=== PATIENT | male | born 1975 | race Caucasian/White ===

== ENCOUNTER 2020-12-04 20:02 | Emergency (ER) | payer OTHER, SELFPAY ==
[2020-12-04 20:30] LABS: POC Glucose,Bedside 236 (70-110)
[2020-12-04 20:32] VITALS: BP 165/85; PULSE 104; RESP 18; TEMP 37.2; O2SAT 96; BMI 41.9
--- NOTE | 2020-12-04 20:50 | HMH.EDUROGM ---
ED Disposition Clinical Impression: Yeast dermatitis of penis Diabetes mellitus Qualifiers: Diabetes mellitus type: type 2 Diabetes mellitus retirement insulin use: unspecified retirement insulin use status Diabetes mellitus complication status: without complication Qualified Code(s): E11.9 - Type 2 diabetes mellitus without complications Disposition: Home, Self-Care Condition on Discharge: Good Instructions: DI for Diabetes Type 2 Additional Instructions: use meds and diet and see pcp for follow up Prescriptions: Fluconazole [Diflucan 100mg tablet] 100 mg PO DAILY #7 tab Transmission Status: [facility] to [facility] Metformin HCl 500 mg PO BID #60 tab Transmission Status: Pending to [facility] Referrals: Eber Marcelino MD [Primary Care Provider] - - Critical Care Critical Care Time: No Attestation: On 12/04/20, the high probability of a clinically significant, sudden or life threatening deterioration of the following system(s) required my full and direct attention, intervention and personal management. The time I documented below is in addition to time spent performing reported procedures but includes the following listed in this critical care notation. Medical Decision Making - Medical Records Medical records reviewed: Yes: I reviewed the patient's medical records. - Ted Inquiry Pt receiving controlled substance: No Vital Signs: 12/04/20 20:32 Temperature 99.0 F Temperature Source Oral Pulse Rate [Right] 104 H Respiratory Rate 18 Blood Pressure [Right Arm] 165/85 H Blood Pressure Mean [Right Arm] 111 Blood Pressure Source [Right Arm] Automatic Cuff 02 Sat by Pulse Oximetry 96 Oxygen Delivery Method Room Air - Lab Data Lab results reviewed: Yes: I reviewed the patient's lab results. Lab Results 12/04/20 20:22: POC Glucose 236 H 12/04/20 20:30: WBC 10.0, RBC 5.26, Hgb 15.3, Hct 44.9, MCV 85.3, MCH 29.1, MCHC 34.1, RDW 14.6, Plt Count 249, MPV 8.7, Neut % (Auto) 68.5, Lymph % (Auto) 24.2, [place] % (Auto) 4.6, Eos % (Auto) 1.7, Baso % (Auto) 1.0, Neut # (Auto) 6.8, Lymph # (Auto) 2.4, [place] # (Auto) 0.5, Eos # (Auto) 0.2, Baso # (Auto) 0.1, ESR 9 12/04/20 20:30: Sodium 138, Potassium 4.1, Chloride 103, Carbon Dioxide 27, Anion Gap 12.1, BUN 19, Creatinine 0.80, Estimated Creat Clear 106, Estimated GFR 105, Est GFR ( Amer) 127, Glucose 232 H, Calcium 9.0, Total Bilirubin 0.5, AST 32, ALT 34, Alkaline Phosphatase 101, C-Reactive Protein 8.2 H, Total Protein 7.4, Albumin 4.1, Globulin 3.3 H, Albumin/Globulin Ratio 1.2, Thyroxine (T4) 9.3 12/04/20 20:30: Hemoglobin A1c 9.8 H 12/04/20 20:48: Urine Color Yellow, Urine Appearance Clear, Urine pH 5.5, Ur Specific [place] >= 1.030, Urine Protein Negative, Urine Glucose (UA) 3+, Urine Ketones Negative, Urine Blood Negative, Urine Nitrate Negative, Urine Bilirubin Negative, Urine Urobilinogen 0.2, Ur Leukocyte Esterase Negative, Urine WBC Occasional, Ur Squamous Epith Cells Occasional, Urine Bacteria Trace Result diagrams: 12/04/20 20:30 12/04/20 20:30 Orders (Tests/Meds): ED MEDICATIONS Generic Name Dose Route Start Last Admin Trade Name Freq PRN Reason Stop Dose Admin Metformin HCl 500 mg 12/04/20 21:36 Metformin 500mg Tablet PO 12/04/20 21:37 ONCE ONE Discontinued Medications Generic Name Dose Route Start Last Admin Trade Name Freq PRN Reason Stop Dose Admin Fluconazole 100 mg 12/04/20 21:35 Fluconazole 100mg Tablet PO 12/04/20 21:36 ONCE ONE Protocol ORDERS Category Date Time Status C-Reactive Protein Stat Lab 12/04/20 20:30 Results Comprehensive Metabolic Panel Stat Lab 12/04/20 20:30 Results Procalcitonin Stat Lab 12/04/20 20:30 Results T4 (Thyroxine) Stat Lab 12/04/20 20:30 Results Thyroid Stimulating Hormone Stat Lab 12/04/20 20:30 Results - Physician Consults Physician Consulted: annamarie Reason -: Pt condition Medical Decision Narrative: will start
[2020-12-04 20:51] LABS: Basophils # 0.1 K/mm3 (0-0.2); Eosinophils # 0.2 K/mm3 (0.0-0.4); Eosinophils % 1.7 % (0.1-12.0); Hematocrit 44.9 % (42.0-52.0); Hemoglobin 15.3 g/dL (14.1-18.0); Lymphocytes # 2.4 K/mm3 (0.7-4.5); Lymphocytes % 24.2 % (10-50); Mean Corpuscular HGB Conc 34.1 g/dL (31.8-35.4); Mean Corpuscular Hemoglobin 29.1 pg (27.0-31.2); Mean Corpuscular Volume 85.3 fl (80-94); Mean Platelet Volume 8.7 fl (7.4-10.4); Monocytes # 0.5 K/mm3 (0.1-1.0); Monocytes % 4.6 % (1.7-9.3); Neutrophils # 6.8 K/mm3 (1.8-7.8); Neutrophils % 68.5 % (37.0-80.0); Platelet Count 249 K/mm3 (142-424); Red Blood Count 5.26 M/mm3 (4.60-6.20); Red Cell Distribution Width 14.6 % (11.5-17.5)
[2020-12-04 20:54] LABS: Appearance,Urine CLEAR (Clear); Bilirubin,Urine Negative (Negative); Blood, Urine Negative (Negative); Color,Urine YELLOW (Yellow); Glucose,Urine (UA) 3+ (Negative); Ketones,Urine Negative (Negative); Leukocyte Esterase,Urine Negative (Negative); Microscopic, Urine URINE MICROSCOPIC (MICROSCOPIC); Nitrate,Urine Negative (Negative); PH,Urine 5.5 (5.0-8.5); Protein,Urine Negative (Negative); Specific Gravity, Urine >= 1.030 (1.005-1.030); Urobilinogen,Urine 0.2 EU/dl (0.2)
[2020-12-04 20:59] LABS: Chloride 103 mmol/L (98-107); Potassium 4.1 mmoL/L (3.5-5.1); Sodium 138 mmol/L (136-145)
[2020-12-04 21:02] LABS: Alanine Aminotransferase 34 U/L (12-78); Albumin Level 4.1 g/dl (3.5-5.0); Albumin/Globulin Ratio 1.2 (1.1-1.8); Alkaline Phosphatase 101 U/L (38-126); Anion Gap 12.1 mEq/L (5-15); Aspartate Amino Transferase 32 U/L (17-59); Bilirubin,Total 0.5 mg/dl (0.2-1.3); Blood Urea Nitrogen 19 mg/dl (9-20); Carbon Dioxide 27 mmol/L (22.0-30.0); Creatinine Clearance Estimated 106 mL/min (50-200); Estimated Glomerular Filt Rate 105 ml/min (>60); GFR (African American) 127 ML/MIN (>60); Globulin 3.3 g/dL (1.3-3.2); Glucose 232 mg/dl (74-100); Total Protein,Serum 7.4 g/dl (6.3-8.2)
[2020-12-04 21:09] LABS: C-Reactive Protein 8.2 mg/L (0-4)
[2020-12-04 21:14] LABS: Erythrocyte Sedimentation Rate 9 mm/hr (0-15)
[2020-12-04 21:21] LABS: T4 (Thyroxine) 9.3 ug/dl (5.53-11.0)
[2020-12-04 21:22] LABS: Bacteria,Urine Trace /lpf; Squamous Epithelial Cell,Urine Occasional #/hpf (0-5); WBC,Urine Occasional #/hpf (0-3)
[2020-12-04 21:30] VITALS: BP 123/73; PULSE 85; O2SAT 97
[2020-12-04 21:32] LABS: Hemoglobin A1C 9.8 % (4.0-6.0)
[2020-12-04 21:34] LABS: Thyroid Stimulating Hormone 1.75 uIU/mL (0.465-4.68)
[2020-12-04 21:49] LABS: Procalcitonin 0.094 ng/mL (0.0-2.0)
[2020-12-04 21:59] VITALS: BP 123/73; PULSE 93; RESP 15; TEMP 36.8; O2SAT 98
== END 2020-12-04 22:03 | disposition home or self-care (01) ==
PROVIDERS: Emergency Provider Emergency Medicine; PCP Family Medicine
DX: B37.2 Candidiasis of skin and nail (principal); L30.8 Other specified dermatitis; N48.89 Other specified disorders of penis; E11.9 Type 2 diabetes mellitus without complications; Z79.4 Long term (current) use of insulin
CPT/HCPCS: 80053; 81001; 82962; 83036; 84145; 84436; 84443; 85025; 85651; 86140; 99282

== ENCOUNTER 2021-01-25 16:20 | Emergency (ER) | payer OTHER, SELFPAY ==
[2021-01-25 17:00] VITALS: BP 111/83; PULSE 96; RESP 20; TEMP 37; O2SAT 98; BMI 40.7
[2021-01-25 17:26] LABS: UTC Strep Screen (Rapid) Negative (Negative)
[2021-01-25 17:27] LABS: UTC Influenza A Antigen Negative (Negative); UTC Influenza B Antigen Negative (Negative)
--- NOTE | 2021-01-25 17:40 | HMH.EDUTC ---
[facility] [place] Disposition Clinical Impression: COVID-19 Disposition: Home, Self-Care Condition on Discharge: Good Instructions: DI for COVID-19 (Suspected or Confirmed ), Preventing the Spread of Coronavirus Discharge Instructions Additional Instructions: Drink plenty of fluids. Take tylenol or ibuprofen for pain or fever. Take the medications as directed. Follow up with your regular doctor. GO TO THE ER FOR ANY WORSENING SYMPTOMS Prescriptions: Benzonatate [Tessalon Perle 100mg Cap] 100 mg PO TIDP PRN #30 cap PRN Reason: Cough Transmission Status: Received by [facility] Ondansetron [Zofran 4mg ODT] 4 mg PO DAILYP PRN #20 tab PRN Reason: Nausea Transmission Status: Received by [facility] Referrals: Eber Marcelino MD [Primary Care Provider] - Time of Disposition: 18:24 Medical Decision Making - Medical Records Medical records reviewed: No: I reviewed the patient's medical records. - Ted Inquiry Pt receiving controlled substance: No Vital Signs: 01/25/21 17:00 01/25/21 17:59 Temperature 98.6 F 98.6 F Temperature Source Axillary Pulse Rate 96 H Pulse Rate [Right Brachial] 96 H Respiratory Rate 20 20 Blood Pressure 111/83 Blood Pressure [Right Arm] 111/83 Blood Pressure Mean [Right Arm] 92 Blood Pressure Source [Right Arm] Automatic Cuff Blood Pressure Position [Right Arm] Sitting 02 Sat by Pulse Oximetry 98 Oxygen Delivery Method Room Air - Lab Data Lab results reviewed: Yes: I reviewed the patient's lab results. Lab Results 01/25/21 17:13: Influenza Type A Ag Negative, Influenza Type B Ag Negative 01/25/21 17:13: Strep Scn Rapid Clinic Negative 01/25/21 17:15: SARS-CoV-2 (PCR) Detected A, Influenza A Untype (PCR) Not detected, Influenza Type B (PCR) Not detected Orders (Tests/Meds): ORDERS Category Date Time Status Strep Screen Confirmation Stat Micro 01/25/21 17:13 Received [facility] [place] HPI - General Stated complaint: reaction to flu shot Time Seen by Provider: 01/25/21 17:00 Mode of Arrival: Ambulatory Source of Information: Patient Limitations: No Limitations Description of Symptoms (Recalled from Triage Doc. by RN): PATIENT C/O RECURRING HEADACHES, COUGH, AND DIARRHEA. REPORTS SYMPTOMS STARTED ON FRIDAY AFTER HE RECEIVED HIS FLU VACCINE HEENT Symptoms (Recalled from RN notes): No Resp Symptoms (Recalled from RN notes): Yes Skin Symptoms (Recalled from RN notes): No MS Symptoms (Recalled from RN notes): No Functional Status (Recalled from RN notes): WNL - History of Present Illness Provider Complaint: He states that for the past 2 days he has had fatigue, nausea and he has felt bad. He denies any pain. He is not congested. He says his symptoms started right after he got the flu shot. - Related Data Previous Rx's Medication Instructions Recorded Valacyclovir HCl [Valtrex] 1,000 mg PO TID #21 tab 06/18/19 Fluconazole [Diflucan 100mg tablet] 100 mg PO DAILY #7 tab 12/04/20 Metformin HCl 500 mg PO BID #60 tab 12/04/20 Benzonatate [Tessalon Perle 100mg 100 mg PO TIDP PRN #30 cap 01/25/21 Cap] Ondansetron [Zofran 4mg ODT] 4 mg PO DAILYP PRN #20 tab 01/25/21 Allergies Allergy/AdvReac Type Severity Reaction Status Date / Time No Known Allergies Allergy Verified 11/13/17 13:56 - Worker's Comp Is this a Worker's Comp case?: No [facility] History - Hepatitis A Screen Drug use history?: No High risk sexual behaviors?: No History of sexually transmitted infection?: No Currently employed?: No Childcare worker?: No Do you have indoor plumbing?: Yes Do you have electricity?: Yes Attestation statement:: This patient has been screened for Hepatitis A risk factors. I have reviewed the patient's past medical history: Yes Other Surgeries: Yes: No Previous Surgery Amputation: No Fractures: No - Social History Smoking Status: Former smoker Tobacco Type: cigarettes #Yrs smoked (if former smoker): 11 Alcoh
[2021-01-25 17:44] LABS: Influenza A, PCR Not Detected (NotDetected); Influenza B, PCR Not Detected (NotDetected)
[2021-01-25 17:59] VITALS: BP 111/83; PULSE 96; RESP 20; TEMP 37; O2SAT 98
[2021-01-25 18:13] LABS: Coronavirus 19, PCR Detected (NotDetected)
--- NOTE | 2021-01-25 18:21 | PC.NURSE ---
PATIENT NOTIFIED OF POSITIVE COVID TEST AT THIS TIME
== END 2021-01-25 18:30 | disposition home or self-care (01) ==
PROVIDERS: Emergency Provider Nurse Practitioner Family; PCP Family Medicine
DX: U07.1 COVID-19 (principal); R51.9 Headache, unspecified; R05 Cough; R11.0 Nausea
CPT/HCPCS: 87804; 87880; 99203; C9803; G0463; U0003; U0005

== ENCOUNTER 2022-07-20 14:28 | Emergency (ER) | payer SELFPAY ==
[2022-07-20 14:45] VITALS: BP 165/90; PULSE 93; RESP 14; TEMP 36.9; O2SAT 98; BMI 41.9
--- NOTE | 2022-07-20 14:47 | HMH.EDGENADL ---
Discharge Plan Disposition Patient Disposition: Home, Self-Care Condition: Fair Prescriptions Prescriptions: New ketorolac 10 mg tablet 10 mg PO Q8H 5 Days Qty: 15 0RF tamsulosin [Flomax] 0.4 mg capsule 0.4 mg PO Q24H Qty: 14 0RF ondansetron [ondansetron] 4 mg tablet,disintegrating 4 mg PO TIDP PRN (Reason: Nausea) Qty: 10 0RF amoxicillin-pot clavulanate 875-125 mg tablet 1 tab PO BID Qty: 20 0RF No Action fluconazole 100 MG tablet 100 mg PO DAILY Qty: 7 0RF metformin 500 MG tablet 500 mg PO BID Qty: 60 0RF benzonatate 100 MG capsule 100 mg PO TIDP PRN (Reason: Cough) Qty: 30 0RF ondansetron 4 MG tablet,disintegrating 4 mg PO DAILYP PRN (Reason: Nausea) Qty: 20 0RF valacyclovir 1,000 MG tablet 1,000 mg PO TID Qty: 21 0RF Referrals Follow up/Referrals: Eebr Marcelino MD [Primary Care Provider] - See instructions Clinical Impressions Clinical Impression: Nephrolithiasis Instructions Patient Instructions: DI for Kidney Stones, DI for Diverticulitis Discharge ED Provider: Dale Ugarte General Adult HPI General Chief complaint: PAIN Stated complaint: sharp pain right back side Time Seen by Provider: 07/20/22 14:47 History of Present Illness HPI narrative: Patient is a 47-year-old male with no pertinent past medical history who presents with right-sided back pain. He says that he was eating and approximately 45 minutes afterwards he started to get intense right-sided back/flank pain. He says that this happened 1 time in the past he went to the bathroom subsequently subsided. Denies any fever or chills. He did notice that his urine was a different color than normal. Denies any abdominal pain. No radiation of the pain. No lower extremity pain. Related Data Previous Rx's Medication Instructions Recorded valacyclovir 1 gram tablet 1,000 mg PO TID #21 tabs 06/18/19 fluconazole 100 mg tablet 100 mg PO DAILY #7 tabs 12/04/20 metformin 500 mg tablet 500 mg PO BID #60 tabs 12/04/20 benzonatate 100 mg capsule 100 mg PO TIDP PRN Cough #30 caps 01/25/21 ondansetron 4 mg disintegrating 4 mg PO DAILYP PRN Nausea #20 tabs 01/25/21 tablet amoxicillin 875 mg-potassium 1 tab PO BID #20 tabs 07/20/22 clavulanate 125 mg tablet ketorolac 10 mg tablet 10 mg PO Q8H 5 days #15 tabs 07/20/22 ondansetron 4 mg disintegrating 4 mg PO TIDP PRN Nausea #10 tabs 07/20/22 tablet tamsulosin 0.4 mg capsule (Flomax) 0.4 mg PO Q24H #14 caps 07/20/22 Allergies Allergy/AdvReac Type Severity Reaction Status Date / Time No Known Allergies Allergy Verified 11/13/17 13:56 [facility] Disclaimer: The information contained in this section may have been updated after the patient was seen, as this information can be updated by other users. Social History Smoking Status: Current every day smoker tobacco type: cigarettes alcohol intake: current current occupational status: employed Travel in the last 8 weeks: None ROS Obtained: Yes All systems reviewed & no additional complaints except as documented Physical Exam General General appearance: alert and in no apparent distress Head Head exam: atraumatic, normocephalic and normal inspection Eye Eye exam: Present normal appearance and PERRL ENT ENT exam: Present normal exam, mucous membranes moist and normal external ear exam Neck Neck exam: Present normal inspection and trachea midline Chest Chest inspection: Present normal inspection and symmetric chest wall rise Respiratory Respiratory exam: Present normal lung sounds bilaterally; Absent respiratory distress Cardiovascular Cardiovascular exam: Present regular rate and normal rhythm Abdominal Exam Abdominal exam: Present soft; Absent distention, tenderness or guarding Extremities Exam Extremities exam: Present normal inspection; Absent edema Neurological Exam Neurological exam: Present alert and oriented X3 Psychiatric Psychiatric exam: Present
[2022-07-20 15:03] LABS: Microscopic, Urine URINE MICROSCOPIC (MICROSCOPIC)
[2022-07-20 15:08] LABS: Appearance,Urine CLEAR (Clear); Basophils # 0.1 K/mm3 (0-0.2); Basophils % 0.8 % (0.1-2.0); Blood, Urine TRACE-I (Negative); Color,Urine YELLOW (Yellow); Eosinophils # 0.1 K/mm3 (0.0-0.4); Eosinophils % 0.9 % (0.1-12.0); Glucose,Urine (UA) 2+ (Negative); Hemoglobin 15.2 g/dL (14.1-18.0); Ketones,Urine 1+ (Negative); Leukocyte Esterase,Urine Negative (Negative); Lymphocytes # 1.8 K/mm3 (0.7-4.5); Lymphocytes % 14.2 % (10-50); Mean Corpuscular HGB Conc 33.2 g/dL (31.8-35.4); Mean Corpuscular Hemoglobin 28.4 pg (27.0-31.2); Mean Corpuscular Volume 85.5 fl (80-94); Mean Platelet Volume 8.7 fl (7.4-10.4); Monocytes # 0.7 K/mm3 (0.1-1.0); Monocytes % 5.3 % (1.7-9.3); Neutrophils # 10.2 K/mm3 (1.8-7.8); Neutrophils % 78.8 % (37.0-80.0); Nitrate,Urine Negative (Negative); Platelet Count 246 K/mm3 (142-424); Protein,Urine TRACE (Negative); Red Blood Count 5.38 M/mm3 (4.60-6.20); Red Cell Distribution Width 14.3 % (11.5-17.5); Specific Gravity, Urine >= 1.030 (1.005-1.030); Urobilinogen,Urine 0.2 EU/dl (0.2)
[2022-07-20 15:09] LABS: Chloride 99 mmol/L (98-107); Potassium 3.9 mmoL/L (3.5-5.1); Sodium 134 mmol/L (136-145)
[2022-07-20 15:12] LABS: Alanine Aminotransferase 40 U/L (12-78); Albumin Level 4.1 g/dl (3.5-5.0); Albumin/Globulin Ratio 1.3 (1.1-1.8); Alkaline Phosphatase 92 U/L (38-126); Anion Gap 11.9 mEq/L (5-15); Aspartate Amino Transferase 37 U/L (17-59); Bilirubin,Urine Negative (Negative); Blood Urea Nitrogen 22 mg/dl (9-20); Calcium 8.3 mg/dl (8.4-10.2); Carbon Dioxide 27 mmol/L (22.0-30.0); Creatinine Clearance Estimated 69 mL/min (50-200); Estimated Glomerular Filt Rate 65 ml/min (>60); GFR (African American) 79 ML/MIN (>60); Globulin 3.1 g/dL (1.3-3.2); Glucose 329 mg/dl (74-100); Lipase 148 U/L (23-300); Total Protein,Serum 7.2 g/dl (6.3-8.2)
--- NOTE | 2022-07-20 15:14 | CT_ITS ---
PROCEDURE INFORMATION: Exam: CT Abdomen And Pelvis Without Contrast Exam date and time: 07/20/2022 3:20 PM Age: 47 years old Clinical indication: Abdominal pain; Additional info: Abd pain TECHNIQUE: Imaging protocol: Computed tomography of the abdomen and pelvis without contrast. Radiation optimization: All CT scans at this facility use at least one of these dose optimization techniques: automated exposure control; mA and/or kV adjustment per patient size (includes targeted exams where dose is matched to clinical indication); or iterative reconstruction. REPORTING DATA: Count of CT and Cardiac NM exams in prior 12 months: This patient has received 0 known CTs and 0 known cardiac nuclear medicine studies in the 12 months prior to the current study. COMPARISON: CR XR CHEST 2V 06/18/2019 5:17 AM FINDINGS: Liver: Hepatic steatosis. Gallbladder and bile ducts: Contracted gallbladder. Pancreas: Normal. No ductal dilation. Spleen: Normal. No splenomegaly. Adrenal glands: Normal. No mass. Kidneys and ureters: Perinephric stranding. Findings nonspecific and may reflect acute versus chronic inflammatory change.. Stomach and bowel: Colonic diverticulosis of the descending and sigmoid colon. Findings most pronounced involving the sigmoid colon. There is mild wall thickening with subtle pericolonic mesenteric stranding. Appendix: No evidence of appendicitis. Intraperitoneal space: See Stomach and bowel finding. Vasculature: Unremarkable. No abdominal aortic aneurysm. Lymph nodes: Unremarkable. No enlarged lymph nodes. Urinary bladder: Unremarkable as visualized. Reproductive: Unremarkable as visualized. Bones/joints: Unremarkable. No acute fracture. Soft tissues: Small bilateral fat filled inguinal hernias. IMPRESSION: Findings compatible with mild changes of diverticulitis.
[2022-07-20 15:29] LABS: Bacteria,Urine Trace /lpf; Mucus,Urine Trace /lpf; Squamous Epithelial Cell,Urine Occasional #/hpf (0-5)
[2022-07-20 15:35] LABS: C-Reactive Protein 36.2 mg/L (0-4)
--- NOTE | 2022-07-20 16:35 | PC.NURSE ---
Patient in room with father, no needs at this time
[2022-07-20 17:34] VITALS: BP 165/90; PULSE 93; RESP 14; TEMP 36.9; O2SAT 98
== END 2022-07-20 17:36 | disposition home or self-care (01) ==
PROVIDERS: Emergency Provider Student in an Organized Health Care Education/Training Program; PCP Family Medicine
DX: R10.9 Unspecified abdominal pain (principal); M54.9 Dorsalgia, unspecified
CPT/HCPCS: 74176; 80053; 81001; 83690; 85025; 86140; 96360; 96374; 96375; 99284; 99285; J2405

== ENCOUNTER 2023-11-19 18:12 | Emergency (ER) | payer OTHER, SELFPAY ==
[2023-11-19] VITALS (13 sets, daily range): BP systolic 117–145; BP diastolic 68–83; PULSE 90–120; RESP 17–20; TEMP 36.8–38.1; O2SAT 95–98; BMI 38.8
--- NOTE | 2023-11-19 18:38 | ED_ITS ---
Discharge Plan Disposition Patient Disposition: Still a Patient Prescriptions Prescriptions: No Action metformin 500 MG tablet 500 mg PO BID Qty: 60 0RF Referrals Follow up/Referrals: Eber Marcelino MD [Primary Care Provider] - See instructions Print Language Print Language: Irish Discharge ED Provider: Ximena Gamble [facility] [place] General Stated complaint: fever,dizzy,headache Mode of Arrival: Ambulatory Source of Information: Patient Limitations: No Limitations Time Seen by Provider: 11/19/23 18:38 Description of Symptoms (Recalled from Triage Doc. by RN): PATIENT C/O HEADACHE, DIZZINESS, DECREASED APPETITE, AND NAUSEA SINCE YESTERDAY. HE REPORTS HAVING A ROOT CANAL LAST WEEK HEENT Symptoms (Recalled from RN notes): Yes Resp Symptoms (Recalled from RN notes): No Skin Symptoms (Recalled from RN notes): No MS Symptoms (Recalled from RN notes): No Functional Status (Recalled from RN notes): WNL History of Present Illness Provider Complaint: Patient states he had a root canal last week but has been doing ok with that not having any pain or swelling in his teeth, States that yesterday he wasnt feeling well with intestinal issues states that he has had severe diarrhea and has went to the bathroom 20 plus times, states this morning he had an episode of sharp pain in his left chest but didnt last long and then he went on into work States as the morning went on he got very weak and continued to have diarrhea, headache, felt dizzy like he was going to 'tip over' and nausea but no vomiting, and had to call family to pickler helper up at work, he went home laid down and this evening he was still not feeling well and mother was concerned states he is not acting like himself Patient alert able to answer questions appropriately Related Data Previous Rx's ?Medication ?Instructions ?Recorded metformin 500 mg tablet 500 mg PO BID #60 tabs 12/04/20 Allergies Allergy/AdvReac Type Severity Reaction Status Date / Time No Known Allergies Allergy Verified 11/13/17 13:56 Worker's Comp Is this a Worker's Comp case?: No [facility] Disclaimer: The information contained in this section may have been updated after the patient was seen, as this information can be updated by other users. Social History Smoking Status: Current every day smoker tobacco type: cigarettes alcohol intake: current alcohol intake frequency: a few times a week current occupational status: employed Travel in the last 8 weeks: None ROS Obtained: Yes All systems reviewed & no additional complaints except as documented and Yes Systems reviewed as appropriate & no additional complaints except as documented Constitutional Constitutional: Reports system reviewed and no additional complaints, except as documented, Reports as per HPI, Reports body ache, Reports fatigue, Reports headache(s), Reports poor appetite, Reports lethargy and Reports weakness ENT Ears, Nose, Mouth, and Throat: Reports system reviewed and no additional compla ints, except as documented, Reports as per HPI, Reports dizziness and Reports headache(s) Cardiovascular Cardiovascular: Reports system reviewed and no additional complaints, except as documented, Reports as per HPI and Reports chest pain (this morning for short period of time) Respiratory Respiratory: Reports system reviewed and no additional complaints, except as documented and Reports as per HPI Gastrointestinal Gastrointestingal: Reports system reviewed and no additional complaints, except as documented, as per HPI, diarrhea and nausea Musculoskeletal Musculoskeletal: Reports system reviewed and no additional complaints, except as documented and Reports as per HPI Neurologic Neurologic: Reports dizziness, Reports headache(s) and Reports weakness Endocrine Endocrine: Reports fatigue Physical Exam General General appearance: alert and in no apparent distress Respiratory Respiratory exam: Present normal lung sounds bilaterally; Absent respiratory distress Cardiovascular Cardiovascular exam: Present regular rate and tachycardia Neurological Exam Neurological exam: Present alert and oriented X3 Medical Decision Making Ted Inquiry Pt receiving controlled substance: No Ted was queried for this patient: No Vital Signs: 11/19/23 18:20 Temperature 98.3 F Temperature Source Oral Pulse Rate [Left Brachial] 120 H Respiratory Rate 19 Blood Pressure [Left Arm] 117/70 Blood Pressure Mean [Left Arm] 85 Blood Pressure Source [Left Arm] Automatic Cuff Blood Pressure Position [Left Arm] Sitting 02 Sat by Pulse Oximetry 95 Oxygen Delivery Method Room Air Medical Decision Narrative: Patient was placed in room and was sweating, pale in color and states that he was feeling weak, dizzy, headache and not feeling like himself Reports had episode this am of discomfort/sharp pain in chest area but only lasted short period of time then stopped, reports has had diarrhea several times since yesterday and mother concerned due to states he is not acting like himself and weak states he is a little better than he was this morning but he has been in bed all day so she brought him in FSBS 148 discussed with patient about transfer to the ED and he agreed Called ED and patient transferred to the ED for further evaluation Patient able to answer questions appropriately Mother states he was recenlty dx with Diabetes a few months ago
[2023-11-19 18:40] LABS: POC Glucose,Bedside 148 (70-110)
--- NOTE | 2023-11-19 18:54 | PC.NURSE ---
PATIENT SENT TO ER PER Meg RICE APRN FOR FURTHER EVALUATION. REPORT GIVEN TO DR. MOLINA BY Meg RICE APRN
[2023-11-19 18:59] LABS: Influenza A, PCR Not Detected (NotDetected); Influenza B, PCR Not Detected (NotDetected)
--- NOTE | 2023-11-19 19:01 | PC.NURSE ---
PATIENT TRANSPORTED TO ER VIA WHEELCHAIR WITH [facility] STAFF ASSIST. MOTHER AT BEDSIDE
--- NOTE | 2023-11-19 19:08 | ECG_ITS ---
APPROVED REPORT Exam: Resting ECG HR:94 bpm ECG Measurements Heart Rate 94 AXES MT 148 P 26 QRSd 110 QRS 124 QT 357 T 35 QTc 409 Conclusion SINUS RHYTHM POSSIBLE LEFT ATRIAL ENLARGEMENT [-0.1mV P-WAVE IN V1/V2] INCOMPLETE RIGHT BUNDLE BRANCH BLOCK [90+ ms QRS DURATION, TERMINAL R IN V1/V2, 40+ ms S IN I/aVL/V4/V5/V6] POSSIBLE RIGHT VENTRICULAR HYPERTROPHY [SOME/ALL OF: PROMINENT R IN V1, LATE TRANSITION, RAD, JOVANNY, SSS] ABNORMAL ECG Isolated T wave inversion in lead III, no STEMI Electronically signed by : ADEOLA MOLINA, 11/19/2023 23:52:08
--- NOTE | 2023-11-19 19:17 | XR_ITS ---
PROCEDURE INFORMATION: Exam: XR Chest Exam date and time: 11/19/2023 7:28 PM Age: 48 years old Clinical indication: Pain; Left-sided; Additional info: Brief L side chest pain TECHNIQUE: Imaging protocol: Radiologic exam of the chest. Views: 1 view. COMPARISON: CR XR CHEST 2V 06/18/2019 5:17 AM FINDINGS: Lungs: Unremarkable. No consolidation. Pleural spaces: Unremarkable. No pleural effusion. No pneumothorax. Heart/Mediastinum: Unremarkable. No cardiomegaly. Bones/joints: Unremarkable. IMPRESSION: No acute findings.
--- NOTE | 2023-11-19 19:20 | HMH.EDGENADL ---
Discharge Plan Disposition Patient Disposition: Home, Self-Care Condition: Good Prescriptions Prescriptions: New ciprofloxacin HCl [Cipro] 500 mg tablet 500 mg PO BID Qty: 14 0RF No Action metformin 500 MG tablet 500 mg PO BID Qty: 60 0RF Referrals Follow up/Referrals: bEer Marcelino MD [Primary Care Provider] - See instructions Activity Restrictions/Add. Instructions Additional Instructions/Restrictions: You were evaluated in the ER. You are appropriate for discharge at this time. Stop your metformin until your primary care doctor tells you to restart it. Take the provided vancomycin, 2.5 mL 4 times daily for the next 10 days. Do not skip doses, do not stop taking it early. Refrigerate this medication. Take the prescribed ciprofloxacin as directed, do not skip doses, do not stop taking it early. Drink plenty of water, rest, take Tylenol and ibuprofen if needed for fever. Make an appointment with your primary care physician for reevaluation as soon as possible to discuss your level of hydration as well as when to restart your metformin. They may also want to repeat a stool sample. Return to the ER with new, worsening, or otherwise concerning symptoms. Clinical Impressions Clinical Impression: COVID, Diarrhea, C. difficile diarrhea, Campylobacter diarrhea, Enteritis, enteropathogenic E. coli Stand Alone Forms Stand Alone Forms: Work/School Release Instructions Patient Instructions: DI for Acute Abdominal Pain Print Language Print Language: Wolof Discharge ED Provider: Ximena Gamble General Adult HPI General Chief complaint: Abdominal Pain Stated complaint: fever,dizzy,headache Time Seen by Provider: 11/19/23 18:38 Mode of Arrival: Ambulatory Source of Information: Patient and Relative Limitations: No Limitations Description of Symptoms (Recalled from ER Triage Doc. by RN): C/O HEADACHE, DIZZINESS, N/V/D TODAY History of Present Illness HPI narrative: 48-year-old male recently diagnosed with diabetes and started on metformin approximately 2.5 months ago presents to the ER for concerns of generalized malaise, lightheadedness, nausea, no vomiting, multiple episodes of nonbloody, nonmelanotic diarrhea. Patient states since starting metformin he will often have diarrhea up to 3-4 bowel movements per day. In the last 24 hours he has had 15 or more bowel movements. Patient had temperature of 99.9 at home reportedly this morning, he continued having generalized fatigue and feeling ill today. He had his mom picked him up from work due to his illness. This evening approximately 2 hours prior to arrival patient had approximately 30 seconds of left-sided chest pain when he rolled over in bed, however this immediately subsided when he repositioned. Patient originally went to urgent care where they were concerned of his symptoms, mild tachycardia, and reported chest pain, so he was sent over from urgent care for evaluation in the ER. Related Data Previous Rx's ?Medication ?Instructions ?Recorded metformin 500 mg tablet 500 mg PO BID #60 tabs 12/04/20 ciprofloxacin HCl 500 mg tablet 500 mg PO BID #14 tabs 11/19/23 (Cipro) Allergies Allergy/AdvReac Type Severity Reaction Status Date / Time No Known Allergies Allergy Verified 11/13/17 13:56 [facility] Disclaimer: The information contained in this section may have been updated after the patient was seen, as this information can be updated by other users. Social History Smoking Status: Never smoker alcohol intake: current alcohol intake frequency: a few times a week current occupational status: employed Travel in the last 8 weeks: None ROS Obtained: Yes All systems reviewed & no additional complaints except as documented Constitutional Constitutional: Reports chills, Denies fever(s), Reports headache(s), Reports malaise and Reports weakness (Generalized) Eyes Eyes: Denies change in vision ENT Ears, Nose, Mouth, and Throat: Reports dizziness (Lightheadedness), Reports headache(s), Denies nasal congestion and Denies sore throat Cardiovascular Cardiovascular: Reports chest pain, Denies dyspnea and Denies leg edema Respiratory Respiratory: Denies cough and Denies dyspnea Gastrointestinal Gastrointestingal: Reports diarrhea and nausea; Denies abdominal pain, constipation or vomiting Genitourinary Male Genitourinary: Denies difficulty urinating Musculoskeletal Musculoskeletal: Denies arthralgias, Denies myalgias, Denies numbness and Denies tingling Integumentary/Breasts Skin/Breast: Denies change in pigmentation Neurologic Neurologic: Reports dizziness (Lightheadedness), Reports headache(s), Denies numbness, Denies tingling and Reports weakness (Generalized) Physical Exam General General appearance: alert and in no apparent distress Head Head exam: atraumatic and normocephalic Eye Eye exam: Present PERRL and EOMI ENT ENT exam: Present mucous membranes moist Neck Neck exam: Present normal inspection and full ROM Chest Chest inspection: Present symmetric chest wall rise; Absent tenderness Respiratory Respiratory exam: Present normal lung sounds bilaterally; Absent respiratory distress, wheezes or stridor Cardiovascular Cardiovascular exam: Present regular rate (Tachycardia that was present on arrival has resolved on exam, heart rate 90-95) and normal rhythm Abdominal Exam Abdominal exam: Present soft; Absent distention, tenderness, guarding or rebound Extremities Exam Extremities exam: Present full ROM Neurological Exam Neurological exam: Present alert, oriented X3 and CN II-XII intact; Absent motor sensory deficit Psychiatric Psychiatric exam: Present normal affect and normal mood Skin Skin exam: Present warm and dry Medical Decision Making Ted Inquiry Pt receiving controlled substance: No Vital Signs: 11/19/23 18:20 11/19/23 19:06 11/19/23 19:49 Temperature 98.3 F 98.2 F Temperature Source Oral Oral Pulse Rate 99 H Pulse Rate [Left Brachial] 120 H 107 H Respiratory Rate 19 18 18 Blood Pressure 128/72 Blood Pressure [Left Arm] 117/70 119/68 Blood Pressure Mean 84 Blood Pressure Mean [Left Arm] 85 85 Blood Pressure Source Blood Pressure Source [Left Arm] Automatic Cuff Blood Pressure Position Blood Pressure Position [Left Arm] Sitting 02 Sat by Pulse Oximetry 95 96 97 Oxygen Delivery Method Room Air Room Air Room Air 11/19/23 19:50 11/19/23 20:00 11/19/23 20:30 Temperature Temperature Source Pulse Rate 98 H 94 H 92 H Pulse Rate [Left Brachial] Respiratory Rate 20 18 18 Blood Pressure 128/72 128/75 145/81 H Blood Pressure [Left Arm] Blood Pressure Mean 82 93 Blood Pressure Mean [Left Arm] Blood Pressure Source Automatic Cuff Blood Pressure Source [Left Arm] Blood Pressure Position Sitting Blood Pressure Position [Left Arm] 02 Sat by Pulse Oximetry 97 96 96 Oxygen Delivery Method Room Air Room Air Room Air 11/19/23 21:01 11/19/23 21:30 11/19/23 22:00 Temperature Temperature Source Pulse Rate 92 H 102 H 98 H Pulse Rate [Left Brachial] Respiratory Rate 18 17 18 Blood Pressure 140/75 142/78 H 125/68 Blood Pressure [Left Arm] Blood Pressure Mean 89 94 87 Blood Pressure Mean [Left Arm] Blood Pressure Source Blood Pressure Source [Left Arm] Blood Pressure Position Blood Pressure Position [Left Arm] 02 Sat by Pulse Oximetry 98 98 98 Oxygen Delivery Method Room Air Room Air Room Air 11/19/23 22:31 11/19/23 23:00 11/19/23 23:34 Temperature 100.5 F H Temperature Source Oral Pulse Rate 91 H 90 94 H Pulse Rate [Left Brachial] Respiratory Rate 18 19 20 Blood Pressure 130/77 128/76 138/83 Blood Pressure [Left Arm] Blood Pressure Mean 94 90 Blood Pressure Mean [Left Arm] Blood Pressure Source Automatic Cuff Blood Pressure Source [Left Arm] Blood Pressure Position Supine Blood Pressure Position [Left Arm] 02 Sat by Pulse Oximetry 98 98 98 Oxygen Delivery Method Room Air Room Air Room Air Lab Data Lab Results 11/19/23 18:32: POC Glucose 148 H 11/19/23 18:48: SARS-CoV-2 (PCR) Detected A, Influenza A Untype (PCR) Not detected, Influenza Type B (PCR) Not detected 11/19/23 19:05: WBC 18.9 H, RBC 4.97, Hgb 14.9, Hct 43.7, MCV 88.0, MCH 30.0, MCHC 34.1, RDW 15.0, Plt Count 265, MPV 8.7, Neut % (Auto) 90.2 H, Lymph % (Auto) 6.2 L, [place] % (Auto) 2.9, Eos % (Auto) 0.3, Baso % (Auto) 0.4, Neut # (Auto) 17.1 H, Lymph # (Auto) 1.2, [place] # (Auto) 0.5, Eos # (Auto) 0.1, Baso # (Auto) 0.1, Total Counted 100, Neutrophils % (Manual) 86 H, Lymphocytes % (Manual) 11, Monocytes % (Manual) 3, Platelet Estimate Normal, RBC Morphology Normal, PT 13.3 H, INR 1.21 H, Sodium 135 L, Potassium 3.7, Chloride 103, Carbon Dioxide 25, Anion Gap 10.7, BUN 19, Creatinine 1.00, Estimated Creat Clear 145, Estimated GFR 80, Est GFR ( Amer) 97, Glucose 154 H, Hemoglobin A1c 7.1 H, Calcium 8.8, Total Bilirubin 0.9, AST 31, ALT 40, Alkaline Phosphatase 63, Troponin I < 0.01, Total Protein 7.2, Albumin 3.9, Globulin 3.3 H, Albumin/Globulin Ratio 1.2 07/24/24 19:25: Stl Aeromonas (PCR) Not detected, Stl C. cayetanensis PCR Not detected, Stool Rotavirus (PCR) Not detected, Stl Adenov F 40/41 PCR Not detected, Stool Astrovirus (PCR) Not detected, Stool Campylobacter PCR Detected A, Stl C.difficile Tox PCR Detected A, Stool Cryptosporidium PCR Not detected, Stl E.coli Shiga Tox PCR Not detected, Stool E coli O157 PCR Not detected, Stl Enterotoxigenic E PCR Not detected, Stool EPEC (PCR) Detected A, Stool EAEC (PCR) Not detected, Stl E. histolytica PCR Not detected, Stool Giardia Lamblia PCR Not detected, Stool Salmonella PCR Not detected, Stool Sapovirus (PCR) Not detected, Stl P. shigelloides PCR Not detected, Stl Shigella/EIEC PCR Not detected, St Y.enterocolitica PCR Not detected, Stool Vibrio (PCR) Not detected, Stl Vibrio cholerae PCR Not detected, Stl Norovirus GI/GII PCR Not detected 11/19/23 19:45: Lactate 2.3 H 11/19/23 21:45: Lactate 1.6, Troponin I < 0.01 11/19/23 19:05 11/19/23 19:05 Orders (Tests/Meds): ED MEDICATIONS Discontinued Medications Generic Name Dose Route Start Last Admin Trade Name Freq PRN Reason Stop Dose Admin Lactated Ringer's 1,000 mls @ 999 mls/hr 11/19/23 19:15 11/19/23 19:29 Lactated Ringer's 1000 Ml Bag IV 11/19/23 20:15 999 mls/hr .Q1H1M ONE Administration Lactated Ringer's 1,000 mls @ 999 mls/hr 11/19/23 21:33 11/19/23 21:37 Lactated Ringer's 1000 Ml Bag IV 11/19/23 22:33 999 mls/hr .Q1H1M ONE Administration Levofloxacin 500 mg 11/19/23 22:39 Levofloxacin 500mg Tab PO 11/19/23 22:40 ONCE ONE Ondansetron HCl 4 mg 11/19/23 19:17 11/19/23 19:29 Ondansetron 4mg/2ml Vial IV 11/19/23 19:18 4 mg ONCE ONE Administration Vancomycin HCl 125 mg 11/19/23 22:42 11/19/23 23:29 Vancomycin Hcl 50mg/Ml 150ml Kit PO 11/19/23 22:43 125 mg ONCE ONE Administration ORDERS Category Date Time Status CXR --portable [XR chest portable] Stat Exams 11/19/23 19:17 Completed CBC w/Auto Diff [Complete Blood Count Auto Diff] Stat Lab 11/19/23 19:05 Completed CMP [Comprehensive Metabolic Panel] Stat Lab 11/19/23 19:05 Completed Diarrhea 6-11 Panel, Cdiff PCR Stat Lab 11/19/23 19:25 Completed Hemoglobin A1C Stat Lab 11/19/23 19:05 Completed Lactic Acid Stat Lab 11/19/23 19:45 Completed Lactic Acid Stat Lab 11/19/23 21:45 Completed POC Glucose,Bedside Routine Lab 11/19/23 18:32 Completed PT INR [Prothrombin Time INR] Stat Lab 11/19/23 19:05 Completed Rapid PCR Covid and Flu A/B Stat Lab 11/19/23 18:48 Completed Trop I [Troponin I] Stat Lab 11/19/23 19:05 Completed Troponin I Q3H Lab 11/19/23 21:45 Completed Troponin I Q3H Lab 11/20/23 01:30 Ordered Medical Decision Narrative: In summary, this 48-year-old male presents to the emergency department today with concerns of generalized malaise, fatigue, nausea, diarrhea, brief episode of chest pain. On initial evaluation patient is hemodynamically stable, afebrile, cardiopulmonary exam is reassuring, no chest wall tenderness, fingerstick glucose 148 when he came over from urgent care. Review of [facility] records demonstrates they sent COVID panel which is pending. Differential diagnosis includes but is not limited to viral syndrome, enteritis, dehydration, electrolyte abnormality, lactic acidosis, ACS, pneumothorax, costochondritis. Based on these concerns, I ordered cardiac workup, chest x-ray, viral swab, stool sample, serum labs. ECG personally interpreted demonstrates normal sinus rhythm, rate 94, normal axis, normal [place] and QTc, no STEMI. Patient received IV fluids, Zofran for treatment. Labs personally reviewed demonstrate COVID-positive, full respiratory panel was canceled. Patient has leukocytosis with WBC 18.9, no anemia, he does have neutrophil and lymphocyte predominance consistent with a viral process. Patient's PT/INR are slightly elevated, nonspecific and nonactionable at this time, CMP not specifically actionable, A1c decreased from previous, lactate was elevated at 2.3, patient has already received IV fluid bolus, will recheck. Initial troponin undetectably low at less than 0.01, I have extremely low suspicion for acute cardiac syndrome at that time of patient's presentation and this is reassuring against it. Chest x-ray personally interpreted does not demonstrate any acute intrathoracic abnormality. See radiology read for final interpretation. On reassessment patient has been able to tolerate oral intake. Repeat lactic improved to 1.6. Patient is stool study resulted positive for multiple infectious diarrhea including Campylobacter, C. difficile, enteropathogenic E. coli. Patient does not show findings of kidney dysfunction, he is tolerating his symptoms well from a systemic standpoint and is tolerating oral intake. He has received 2 L of IV fluids. He received oral vancomycin in the ER and was provided this medication to take at home with strict instructions on how to administer it. I also had a discussion with pharmacy regarding treatment of the other infectious diarrhea for which they recommended ciprofloxacin. Patient received 1 dose of fluoroquinolone in the ER and ciprofloxacin was prescribed. Given patient is systemically tolerating his multiple illnesses and diarrhea while at this time, I believe he is appropriate for discharge at this time. I did discuss the option of Paxlovid with the patient, after discussed the risk, benefits, side effects of the medication, patient refused the medication which I believe is reasonable. He has low likelihood of progression to severe COVID. He was given strict instructions on other medication administration. He was given instructions on symptomatic management, close follow-up instructions, and strict return precautions for the ER. He indicated understanding and the patient was discharged in stable condition. Critical Care Critical Care Time Critical Care Time: No
--- NOTE | 2023-11-19 19:24 | PC.NURSE ---
Contacted lab in regards to doing a full respiratory panel on this patient [facility]. Order was placed.
[2023-11-19 19:27] LABS: Coronavirus 19, PCR Detected (NotDetected)
[2023-11-19 19:29] LABS: Basophils # 0.1 K/mm3 (0-0.2); Basophils % 0.4 % (0.1-2.0); Eosinophils # 0.1 K/mm3 (0.0-0.4); Eosinophils % 0.3 % (0.1-12.0); Hematocrit 43.7 % (42.0-52.0); Hemoglobin 14.9 g/dL (14.1-18.0); Lymphocytes # 1.2 K/mm3 (0.7-4.5); Lymphocytes % 6.2 % (10-50); Mean Corpuscular HGB Conc 34.1 g/dL (31.8-35.4); Mean Platelet Volume 8.7 fl (7.4-10.4); Monocytes # 0.5 K/mm3 (0.1-1.0); Monocytes % 2.9 % (1.7-9.3); Neutrophils # 17.1 K/mm3 (1.8-7.8); Neutrophils % 90.2 % (37.0-80.0); Platelet Count 265 K/mm3 (142-424); Red Blood Count 4.97 M/mm3 (4.60-6.20); White Blood Count 18.9 K/mm3 (4.8-10.8)
[2023-11-19] MEDS: LACTATED RINGERS 1000ML 1,000 ML 999 ML IV ×2 (19:29→21:37)
[2023-11-19] MEDS: ONDANSETRON 4MG/2ML VIAL 4 MG IV (19:29)
--- NOTE | 2023-11-19 19:31 | PC.NURSE ---
stool sample collected and sent to lab.
[2023-11-19 19:33] LABS: Adenovirus F 40/41, stool Not Detected (NotDetected); Astrovirus Not Detected (NotDetected); Cryptosporidium Not Detected (NotDetected); Cyclospora Cayetanesis Not Detected (NotDetected); Entamoeba histolytica Not Detected (NotDetected); Enteroaggregative E coli Not Detected (NotDetected); Enterotoxigenic E coli Not Detected (NotDetected); Giardia lamblia Not Detected (NotDetected); Norovirus Not Detected (NotDetected); Plesimonas Shigalloides, PCR Not Detected (NotDetected); Rotavirus A Not Detected (NotDetected); Salmonella, PCR Not Detected (NotDetected); Sapovirus Not Detected (NotDetected); Shiga-like toxin E coli Not Detected (NotDetected); Shigella Enterovasive E coli Not Detected (NotDetected); Vibrio Cholerae Not Detected (NotDetected); Vibrio, PCR Not Detected (NotDetected); Yersinia Entercolitica, PCR Not Detected (NotDetected)
--- NOTE | 2023-11-19 19:33 | PC.NURSE ---
Pulled medications for this patient per the MAR and given to JOSIE Ramsey.
[2023-11-19 19:36] LABS: Alanine Aminotransferase 40 U/L (12-78); Albumin Level 3.9 g/dl (3.5-5.0); Albumin/Globulin Ratio 1.2 (1.1-1.8); Alkaline Phosphatase 63 U/L (38-126); Anion Gap 10.7 mEq/L (5-15); Aspartate Amino Transferase 31 U/L (17-59); Bilirubin,Total 0.9 mg/dl (0.2-1.3); Blood Urea Nitrogen 19 mg/dl (9-20); Calcium 8.8 mg/dl (8.4-10.2); Carbon Dioxide 25 mmol/L (22.0-30.0); Chloride 103 mmol/L (98-107); Creatinine Clearance Estimated 145 mL/min (50-200); Estimated Glomerular Filt Rate 80 ml/min (>60); GFR (African American) 97 ML/MIN (>60); Globulin 3.3 g/dL (1.3-3.2); Glucose 154 mg/dl (74-100); INR 1.21 (0.9-1.1); Potassium 3.7 mmoL/L (3.5-5.1); Prothrombin Time 13.3 seconds (10.1-12.5); Sodium 135 mmol/L (136-145); Total Protein,Serum 7.2 g/dl (6.3-8.2)
[2023-11-19 19:39] LABS: MANUAL DIFFERENTIAL MANUAL DIFFERENTIAL (MANUAL DIFF)
[2023-11-19 19:51] LABS: Troponin I < 0.01 ng/ml (0.00-0.034)
[2023-11-19 20:09] LABS: Lymphocytes % 11 % (10-50); Monocytes % 3 % (2-9); Neutrophils % 86 % (42-76); Platelet Estimate Normal; RBC Morphology Normal; Total Cells Counted 100
[2023-11-19 20:13] LABS: Hemoglobin A1C 7.1 % (4.0-6.0)
[2023-11-19 20:23] LABS: Lactic Acid 2.3 mmol/L (0.7-2.1)
[2023-11-19 22:25] LABS: Troponin I < 0.01 ng/ml (0.00-0.034)
[2023-11-19 22:27] LABS: Campylobacter Detected (NotDetected)
[2023-11-19 22:28] LABS: Clostridium Difficile A/B, PCR Detected (NotDetected); Enteropathogenic E coli Detected (NotDetected)
--- NOTE | 2023-11-19 22:36 | PC.NURSE ---
Lab called with results of diarrhea panel positive for C-Diff, Campylobacter, Enteropathic E-Coli.
--- NOTE | 2023-11-19 22:37 | PC.NURSE ---
Spoke with Ga from [facility] pharmacy for recommendation on abx to cover diarrhea panel results; stated combination of PO Vanc and Cipro would cover all areas.
[2023-11-19 22:56] LABS: Lactic Acid 1.6 mmol/L (0.7-2.1)
[2023-11-19] MEDS: VANCOMYCIN HCL 50MG/ML 150ML KIT 125 MG PO (23:29)
[2023-11-19] MEDS: levoFLOXacin 500MG TAB 500 MG PO (23:44)
== END 2023-11-19 23:48 | disposition home or self-care (01) ==
LOC: UTC 19:01 → ER 19:02
PROVIDERS: Nurse Practitioner; Emergency Provider Emergency Medicine; PCP Family Medicine
DX: U07.1 COVID-19 (principal); A04.4 Other intestinal Escherichia coli infections; A04.5 Campylobacter enteritis; A04.72 Enterocolitis due to Clostridium difficile, not specified as recurrent; R19.7 Diarrhea, unspecified; R53.83 Other fatigue
CPT/HCPCS: 71045; 80053; 82962; 83036; 83605; 84484; 85007; 85025; 85027; 85610; 87506; 87636; 93005; 96361; 96374; 99284; J2405; J7120

== ENCOUNTER 2024-04-22 14:34 | Outpatient (CLI) | payer OTHER, SELFPAY ==
[2024-04-22 15:52] VITALS: BMI 38.7
== END 2024-04-22 23:59 | disposition home or self-care (01) ==
LOC: DIETICIAN 14:34
PROVIDERS: PCP Family Medicine; Visit Provider Physician Assistant
DX: E11.9 Type 2 diabetes mellitus without complications (principal)
CPT/HCPCS: 97802